=== PATIENT | female | born 1970 | race African-American/Black ===

== ENCOUNTER 2016-10-28 08:13 | Emergency (ER) | payer BC, MEDICAID ==
[~2016-10-28] VITALS: Ht 185.4 cm; Wt 104.0 kg
[~2016-10-28 08:13] MED LIST: CIPR-9 PO; COLA100C3 PO; FERR325T PO; FLUC150T PO
[2016-10-28 08:39] VITALS: BP 120/75; PULSE 84; RESP 16; TEMP 98.6; O2SAT 100
--- NOTE | 2016-10-28 09:10 | PD ---
HPI Chief Complaint: Review Coordinator Problem/Complaint Time Seen by Provider: 08:43 Travel History International Travel<30 days: No Contact w/Intl Traveler<30days: No Traveled to known affect area: No History of Present Illness HPI This is a 46-year-old female who presents with complaint of one -week history of right eyelid redness and swelling that has improved however this a.m. she noted redness of the right eye with crusted drainage from the right eye. Patient also complains of a three-day history of vaginal irritation and whitish vaginal discharge which she has been treating with [id number] preparation. Patient notes persistent vaginal irritation. Patient denies a decrease in vision. Patient denies recent eye trauma except she has placed artificial eye lashes or for cosmetic reasons and noted the swelling of the right upper subsequently. Patient notes sex with one male partner that is unprotected. Patient denies any history of sexually transmitted disease. Patient believes a pH balance is off and thus she developed vaginal irritation. PFSH Past Medical History Anemia: Yes Diminished Hearing: No Tetanus Vaccination: Unknown ?: Not Past Surgical History Surgical History: No Previous Surgery Social History Alcohol Use: Yes (RARE) Tobacco Use: No Substance Use: No Allergies-Medications (Allergen,Severity, Reaction): Coded Allergies: No Known Allergies (Unverified , 10/28/16) Reported Meds & Prescriptions Reported Meds & Active Scripts Active Erythromycin Opth Oint 5 Mg/Gm Oint 1 Applic RIGHT EYE BID 7 Days Keflex (Cephalexin) 500 Mg Cap 500 Mg PO Q12H 7 Days Diflucan (Fluconazole) 150 Mg Tab 150 Mg PO ONCE Cipro (Ciprofloxacin HCl) 500 Mg Tab 500 Mg PO BID 7 Days Fluconazole 150 Mg Tab 150 Mg PO ONCE Review of Systems ROS Limitations: Other: (none) General / Constitutional: No: Fever, Chills, Weight Gain, Weight Loss, Other Eyes: Positive: Drainage, No: Diploplia, Blurred Vision, Photophobia, Redness , Foreign Body Sensation, Pain, Tearing, Blind Spots, Visual changes, Blindness , Other HENT: No: Headaches, Vertigo, Lightheadedness, Sore Throat, Rhinitis, Rhinorrhea, Congestion, Nosebleed, Neck Stiffness, Neck Pain, Masses, Gingival Bleeding, Dental Difficulties, Ear Discharge, Earache, Other Cardiovascular: No: Chest Pain or Discomfort, Palpitations, Irregular Rhythm, Tachycardia, Diaphoresis, Syncope, Dyspnea on exertion, Varicosities, Edema, Cyanosis, Varicosities, Phlebitis, Claudication, Other Respiratory: No: Cough, Shortness of Breath, Wheezing, Sneezing, Orthopnea, Hemoptysis, Stridor, Night Sweats, Pleuritic Pain, Other Gastrointestinal: No: Nausea, Vomiting, Diarrhea, Abdominal Pain, Hematemesis, Hematochezia, Constipation, Changes in Bowel Habits, Indigestion, Dysphagia, Loss of Appetite, Other Genitourinary: Positive: Discharge, Other (vaginal irritation), No: Urgency, Frequency, Dysuria, Nocturia, Hematuria, Decreased Urinary Output, Oliguria, Hesitancy, Dribbling, Incontinence, Pelvic Pain, Flank Pain, Dyspareunia, Dysmenorrhea, Menorrhagia, Metorrhagia, Vaginal Bleeding Musculoskeletal: No: Myalgias, Arthralgias, Limited ROM, Weakness, Cramping, Edema, Pain, Atrophy, Other Skin: Positive Other (vaginal irritation), No Rash, No Itching, No Dryness, No Lumps, No Hives, No Change in Pigmentation, No Change in nails, No Alopecia, No Lesions, No Breast Lumps, No Breast Tenderness, No Breast Swelling Neurologic: No: Weakness, Dizziness, Syncope, Focal Abnormalities, Coordination Problem, Tremor, Ataxia, Headache, Change in Mentation, Slurred Speech, Paresthesia, Incontinence, Seizures, Sensory Disturbance, Other Psychiatric: No: Anxiety, Depression, Suicidal Ideations, Disorder of Thought, Mood Disorder, Substance Abuse, Homicidal Ideation, Other Endocrine: No: Heat Intolerance, Cold Intolerance, Polyuria, Polydipsia, Other Hematologic/Lymphatic: No: Easy Bruising, Lymph Node Enlargement, Other Physical Exam Exam Limitations: Other: (none ) Narrative GENERAL: H female in no acute distress SKIN: Focused skin assessment warm/dry.no lesions no cyanosis no erythema HEAD: Atraumatic. Normocephalic. EYES: Pupils equal and round and reactive . No scleral icterus. Artificial eyelashes noted bilaterally without erythema of the right upper lid conjunctival injection on the right yellow tinged discharge from right eye crusted ENT: No nasal bleeding or discharge. Mucous membranes pink and moist. No sinus tenderness NECK: Trachea midline. No JVD. CARDIOVASCULAR: S1-S2 appreciated. Regular rate and rhythm. No murmur appreciated. Pulses normal throughout. RESPIRATORY: No accessory muscle use. Clear to auscultation. Breath sounds equal bilaterally. GASTROINTESTINAL: Abdomen soft, non-tender, nondistended. Hepatic and splenic margins not palpable. Bowel sounds normal. No peritoneal signs. Genital urinary: No cmt + scant whitish discharge from vagina minimal irritation of labia minora no masses no vaginal bleeding no adnexal tenderness or masses MUSCULOSKELETAL: No obvious deformities. No clubbing. No cyanosis. No edema. NEUROLOGICAL: Awake and alert and oriented 3.. No obvious cranial nerve deficits. Motor and sensory exam grossly within normal limits. Normal speech. No meningeal signs. PSYCHIATRIC: Appropriate mood and affect; insight and judgment normal. No suicidal or homicidal ideation. SKIN: Focused skin assessment warm/dry.no lesions no cyanosis no erythema HEAD: Atraumatic. Normocephalic. EYES: Pupils equal and round and reactive . No scleral icterus. No injection or drainage. ENT: No nasal bleeding or discharge. Mucous membranes pink and moist. NECK: Trachea midline. No JVD. CARDIOVASCULAR: S1-S2 appreciated. Regular rate and rhythm. No murmur appreciated. Pulses normal throughout. RESPIRATORY: No accessory muscle use. Clear to auscultation. Breath sounds equal bilaterally. GASTROINTESTINAL: Abdomen soft, non-tender, nondistended. Hepatic and splenic margins not palpable. Bowel sounds normal. No peritoneal signs. MUSCULOSKELETAL: No obvious deformities. No clubbing. No cyanosis. No edema. NEUROLOGICAL: Awake and alert and oriented 3.. No obvious cranial nerve deficits. Motor and sensory exam grossly within normal limits. Normal speech. No meningeal signs. PSYCHIATRIC: Appropriate mood and affect; insight and judgment normal. No suicidal or homicidal ideation. Data Data Last Documented VS Orders Urinalysis - C+S If Indicated (10/28/16 09:11) Gc And Chlamydia Pcr (10/28/16 09:11) Wet Prep Profile (10/28/16 09:12) Ed Urine Pregnancytest Poc (10/28/16 09:43) Labs MDM Medical Decision Making Medical Screen Exam Complete: Yes Emergency Medical Condition: Yes Medical Record Reviewed: Yes Interpretation(s) ua neg wet prep neg for trichomonas or yeast Patient use an [id number] preparation for yeast likely then negative wet prep is the result of a partially treated condition Visual acuity within normal limits Differential Diagnosis Differential diagnoses blepharitis conjunctivitis dry eye Snow vaginitis partially treated cervicitis STD bacterial vaginosis Diagnosis Primary Impression: Snow Vaginitis- partially treated Additional Impressions: Blepharitis of eyelid of right eye Conjunctivitis Qualified Code: H10.31 - Acute bacterial conjunctivitis of right eye Patient Instructions: Blepharitis (DC), General Instructions, Vulvovaginal Candidiasis (ED) Departure Forms: Tests/Procedures, Work Release Enter return to work date: Oct 31, 2016 Additional Instructions: avoid sexual contact for at least 10 days keep vaginal area clean and dry Removed artificial lashes Apply erythromycin eye ointment as directed Take Diflucan 1 dose today and if symptoms persist take her repeat dosing 3 day Follow-up with gynecology as directed Return if symptoms persists or worsens follow up with your primary care provider in 5 days as needed Scripts Erythromycin Opth Oint 5 Mg/Gm Oint1 Applic RIGHT EYE BID 7 Days Ref 0 Prov:Shiv Odom MD 10/28/16 Cephalexin (Keflex)500 Mg [id number] Mg PO Q12H 7 Days Ref 0 Prov:Shiv Odom MD 10/28/16 Fluconazole (Diflucan)150 Mg [id number] Mg PO ONCE #2 TAB Ref 0 Prov:Shiv Odom MD 10/28/16 Disposition: 01 DISCHARGE HOME Condition: Good Shiv Odom MD Oct 28, 2016 09:10 Clue Cells (Wet Prep) NONE SEEN Vaginal Trichomonas (Wet Prep) NONE SEEN Vaginal Yeast (Wet Prep) NONE SEEN MDM Medical Decision Making Medical Screen Exam Complete: Yes Emergency Medical Condition: Yes Medical Record Reviewed: Yes Interpretation(s) ua neg wet prep neg for trichomonas or yeast Patient use an [id number] preparation for yeast likely then negative wet prep is the result of a partially treated condition Visual acuity within normal limits Differential Diagnosis Differential diagnoses blepharitis conjunctivitis dry eye Sonw vaginitis partially treated cervicitis STD bacterial vaginosis Diagnosis Primary Impression: Snow Vaginitis- partially treated Additional Impressions: Blepharitis of eyelid of right eye Conjunctivitis Qualified Code: H10.31 - Acute bacterial conjunctivitis of right eye Patient Instructions: Blepharitis (DC), General Instructions, Vulvovaginal Candidiasis (ED) Departure Forms: Tests/Procedures, Work Release Enter return to work date: Oct 31, 2016 Additional Instructions: avoid sexual contact for at least 10 days keep vaginal area clean and dry Removed artificial lashes Apply erythromycin eye ointment as directed Take Diflucan 1 dose today and if symptoms persist take her repeat dosing 3 day Follow-up with gynecology as directed Return if symptoms persists or worsens follow up with your primary care provider in 5 days as needed Scripts Erythromycin Opth Oint 5 Mg/Gm Oint1 Applic RIGHT EYE BID 7 Days Ref 0 Prov:Shiv Odom MD 10/28/16 Cephalexin (Keflex)500 Mg [id number] Mg PO Q12H 7 Days Ref 0 Prov:Shiv Odom MD 10/28/16 Fluconazole (Diflucan)150 Mg [id number] Mg PO ONCE #2 TAB Ref 0 Prov:Shiv Odom MD 10/28/16 Disposition: 01 DISCHARGE HOME Condition: Good Shiv Odom MD Oct 28, 2016 09:10
[2016-10-28 09:24] LABS: BLOOD, URINE TRACE (NEG); GLUCOSE,URINE NEG (NEG); KETONE, URINE NEG (NEG); NITRITE,URINE NEG (NEG); PH, URINE 5.5 (5.0-8.5)
[2016-10-28 09:37] LABS: METHOD OF COLLECTION CLEAN CATCH; URINE COLOR YELLOW (YELLW/STRAW)
[2016-10-28 09:38] LABS: RBC, URINE 0-3 /hpf (0-3); WBC, URINE 0-2 /hpf (0-5)
[2016-10-28 09:40] LABS: COMMENT (UR) CULT NOT INDICATED; CULTURE IF INDICATED CULT NOT INDICATED
[2016-10-28] MEDS ORDERED: DIFL150T PO (09:50)
[2016-10-28] MEDS ORDERED: CEPH-460 PO (09:50)
[2016-10-28] MEDS ORDERED: ERYTOIN10 RIGHT EYE (09:51)
[2016-10-28 15:04] LABS: CHLAMYDIA PCR NOT DETECTED (NOT DETECT); NEISSERIA PCR NOT DETECTED (NOT DETECT)
== END 2016-10-28 10:05 | disposition home or self-care (01) ==
LOC: PHED 08:13
DX: B37.3 Candidiasis of vulva and vagina (principal); H01.003 Unspecified blepharitis right eye, unspecified eyelid; H10.31 Unspecified acute conjunctivitis, right eye
CPT/HCPCS: 81001; 84703; 87210; 87491; 87591; 99284